=== PATIENT | female | born 1995 | race Caucasian/White ===

== ENCOUNTER 2016-10-10 11:50 | Emergency (ER) | payer BC, MEDICAID ==
[~2016-10-10] VITALS: Ht 160 cm; Wt 77.1 kg
[~2016-10-10 11:50] MED LIST: DICY20TA57 PO; HYDR-3583 PO; IBUP-1773 PO; PREN1TAB39 PO; PREN1TAB86 PO; VIVANCE; XANAX
--- OUTSIDE RECORDS SUMMARY | 2016-10-10 12:00 | XMS REPORT | Continuity of Care Document ---
Author Author Interface Organization Interface Address Unknown Phone Unavailable Problems Problem Status Onset Date Classification Date Reported Comments Source High risk (finding) Active Problem 09/27/2016 [facility] Patient currently (finding) Active 11/14/2015 Problem 09/27/2016 [facility] Medications Medication Details Route Status Patient Instructions Ordering Provider Order Date Source Multivitamins with Folic Acid 1 mg oral tablet Refill(s) 0 Active [facility] glucose TT beverage 50 gm/296 mL 05/26/16 11:00:00 CDT , Routine, 50 gm, PO, Unscheduled, 1 dose(s), Order for future visit Active [facility] Flagyl 500 mg oral tablet 500 mg=1 tablet, PO, BID, x 7 day(s), # 14 tablet, Refill(s) 0 [facility] Allergies, Adverse Reactions, Alerts Substance Category Reaction Severity Reaction type Status Date Reported Comments Source Immunizations Immunization Date Given Site Status Last Updated Comments Source Results Order Name Results Value Reference Range Date Interpretation Comments Source Health Clinic Note Health Clinic Note Antepartum Exam Nurse Communication Nurse Communication: 21 year old at 26w6d gestation seen at the [facility] for 2nd opinion ultrasound and PAT. is complicated by T18. Patient is accompanied by her friend and FOB. Dr. Adrian at bedside discussing ultrasound results with patient. Patient expresses desire for [facility] delivery. POC discussed. Patient verbalizes understanding. Plan: Patient to return to the [facility] in 4 weeks for echo, repeat ultrasound, and IC. Patient to continue care with Dr. Lisa Wright [facility] Next Appointment Recommendation: 4 weeks Vitals/Ht/Wt Comfort History Comfort Assessment: No pain Obstetrical History : 2 Para Fullterm: 1 Para : 0 Abortions: 0 Livin #1 Baby's Name: Baby 1 Delivery/Outcome Date: 08/19/2011 00:00 Gestational Age: 40 wks Gender: Female Weight: 3374 gm Outcome: Live Provider Name: Tru Adrian MD</br> Electronically Signed On: 07/02/16 03: 47 PM</br> 05/27/2016 Provider Name: Tru Adrian MD Electronically Signed On: 07/02/16 03:47 PM [facility] Health Clinic Note Health Clinic Note Antepartum Exam Nurse Communication Nurse Communication: 21 year old at 31w3d gestation seen at the [facility] for follow up ultrasound, Echo, social work consult, and IC. is complicated by T18, polyhydramnios, and a complete AV canal. Dr. Adrian at bedside reviewing ultrasound reports with patient. Patient verbalizes she is continuing all care with Dr. Wright. Dr. Adrian emphasizes importance of labor precautions and kick counts. Patient verbalizes understanding. Patient states she wants to go home at this time, and wishes to cancel her integrated consult. POC discussed. Patient verbalizes understanding. Plan: Patient to continue all care with Dr. Wright Patient to return to the [facility] in 4 weeks for follow-up ultrasound and integrated consult Patient to relocate to the [facility] at 38 weeks 39 week [facility] delivery [facility] Next Appointment Recommendation: 4 weeks Vitals/Ht/Wt Comfort History Comfort Assessment: No pain Obstetrical History : 2 Para Fullterm: 1 Para : 0 Abortions: 0 Livin #1 Baby's Name: Baby 1 Delivery/Outcome Date: 08/19/2011 00:00 Gestational Age: 40 wks Gender: Female Weight: 3374 gm Outcome: Live Social History Category Details Last Reviewed Alcohol Comment(s): tammi - 05/27/2016 15:32 - Marquita Cali, SHERLEY 05/27/2016 Substance Abuse Comment(s): tammi - 05/27/2016 15:32 - Marquita Cali, SHERLEY 05/27/2016 Tobacco Never used Comment(s): tammi - 05/27/2016 15:32 Marquita Barrientos, RN 05/27/2016 Smoking Exposure No 05/27/2016 Provider Name: Tru Adrian MD</br> Electronically Signed On: 06/28/16 03: 46 PM</br> 06/28/2016 Provider Name: Tru Adrian MD Electronically Signed On: 06/28/16 03:46 PM [facility] Vital Signs Vital Sign Value Date Comments Source Respiratory Rate 20 BR/min [facility] Systolic Blood Pressure Cuff Monitored <content ID=' [id number]'>109</content>/<content ID='[id number]'>69</content> mm[Hg ] 07/26/2016 [facility] Heart Rate 83 bpm 07/26/2016 [facility] Temperature Route Core/Temporal </br>(07/26/2016 13:05:00) <sup> </sup> 07/26/2016 [facility] Height/Length 160 cm 2015 [facility] Temperature Celsius 35.7 Iva 07/26/2016 [facility] Systolic Blood Pressure Cuff Monitored <content ID=' [id number]'>116</content>/<content ID='[id number]'>64</content> mm[Hg ] 05/27/2016 [facility] Current Weight 90.5 kg 2015 [facility] Height/Length 160 cm 2015 [facility] Respiratory Rate 19 BR/min [facility] Heart Rate 68 bpm 05/27/2016 [facility] Temperature Route Oral </br>(05/27/2016 15:24:00) <sup> </sup> 05/27/2016 [facility] Temperature Celsius 36.8 Iva 05/27/2016 [facility] Encounters Location Location Details Encounter Type Encounter Number Reason For Visit Attending Provider ADM Date DC Date Status Source [facility] Non Billable [id number] 05/18/2016 05/18/2016 Active [facility] CLI [id number] Tru Adrian 05/27/2016 05/27/2016 Active [facility] OBS [id number] Darryl Hannah 07/26/2016 Active [facility] CLI [id number] Tru Adrian 06/28/2016 06/28/2016 Active [facility] Procedures Procedure Code Date Perfomer Comments Source biophysical profile; with non-stress testing [facility] Office or other outpatient visit for the evaluation and management of an established patient, which requires at least 2 of these 3 craft components: A detailed history; A detailed examination; Medical decision making of moderate complexity. Counseling and/o 07/26/2016 [facility] Doppler echocardiography color flow velocity mapping (List separately in addition to codes for echocardiography) 06/28/2016 [facility] Doppler echocardiography, , pulsed wave and/or continuous wave with spectral display; complete [facility] Echocardiography, , cardiovascular system, real time with image documentation (2D), with or without M-mode recording; [facility]
--- NOTE | 2016-10-10 12:25 | ED Neurological Problem ---
General Chief Complaint: Altered Mental Status Stated Complaint: RACING HEART Nursing Triage Note: Called EMS for heart racing and meet EMS outside on arrival. Pt is uncooperative with hx intake, staring at staff with questions asked. EMS reports Meth yesterday Nursing Sepsis Screen: No Definite Risk Source: patient Exam Limitations: other (the patient has refused to offer a history after her arrival in the emergency department.) History of Present Illness Time seen by provider: 12:20 Initial Comments This 21-year-old white female presents after calling EMS for transport to the emergency department. The patient after EMS arrived refused to talk to the paramedics who transported the stable patient to the emergency department. The patient in the emergency department was able to answer some questions and a clear and coherent fashion. However, the majority of the patient's acid question she did not answer. Shortly after arrival the patient attempted to leave. I asked the patient not to leave. I discussed with the patient that we cannot allow her to leave until we're certain she would be safe and was coherent. The patient during the course of her evaluation became awake and alert. She elected to leave in the course of treatment. Allergies and Home Medications Allergies Coded Allergies: No Known Drug Allergies (Unverified , 08/18/11) Home Medications Ibuprofen 600 Mg Tablet #90 600 MG PO Q6H Prescribed by: CLAUDINE ROMAN on 08/03/16 1725 Vit W-Ca,Fe,FA(<1 mg) 1 Each Tablet 1 EACH PO DAILY (Reported) Constitutional: see HPI (I was unable to perform review of systems on the patient.) Past Jvzkmiv-Uptxxr-Fzecyq Hx Patient Social History Alcohol Use: Denies Use Recreational Drug Use: No Smoking Status: Former Smoker Type Used: Cigarettes Recent Foreign Travel: No Contact w/Someone Who Travel: No Recent Infectious Disease Expo: No Recent Hopitalizations: No Physical Abuse Screen: No Sexual Abuse: No Immunizations Up To Date Tetanus Booster (TDap): Unknown Seasonal Allergies Seasonal Allergies: No Surgeries HX Surgeries: Yes Surgeries: Adenoidectomy, Gallbladder, Tonsillectomy Respiratory Hx Respiratory Disorders: No Cardiovascular Hx Cardiac Disorders: No Neurological Hx Neurological Disorders: No Reproductive System Hx Reproductive Disorders: No Genitourinary Hx Genitourinary Disorders: No Gastrointestinal Hx Gastrointestinal Disorders: No Musculoskeletal Hx Musculoskeletal Disorders: No Endocrine Hx Endocrine Disorders: No HEENT HX ENT Disorders: No Cancer Hx Cancer: No Psychosocial Hx Psychiatric Problems: Yes (methamphetamine abuse) Behavioral Health Disorders: ADD/ADHD Integumentary HX Skin/Integumentary Disorder: No Blood Transfusions Hx Blood Disorders: No Family Medical History Significant Family History: Asthma, Diabetes Family Medial History: Not obtainable due to adoption Physical Exam Vital Signs Vital Sign - Last 12Hours 10/10/16 11:50 Temp 97.9 Pulse 101 Resp 16 B/P 149/97 Pulse Ox 95 O2 Delivery Room Air Capillary Refill : Less Than 3 Seconds General Appearance: WD/WN other (the patient will track verbally. She is essentially unresponsive to my questions. There was no evidence of head trauma. ) HEENT: normal ENT inspection Neck: normal inspection Respiratory: normal breath sounds Cardiovascular: regular rate, rhythm Gastrointestinal: normal bowel sounds non tender soft Back: normal inspection Extremities: normal range of motion non-tender normal inspection Neurologic/Psychiatric: other (at this point is not possible to determine the patient's orientation. She is able ambulate without difficulty. The patient will not respond to simple questions. The patient has been noncombative and will follow instructions.) Motor/Sensory: no motor deficit Skin: normal color warm/dry Progress/Results/Core Measures Results/Orders Lab Results Laboratory Tests Test 10/10/16 12:26 Range/Units Alanine Aminotransferase (ALT/SGPT) 25 0-55 U/L Albumin 4.6 H 3.2-4.5 G/DL Alkaline Phosphatase 116 40-136 U/L Anion Gap 15 H 5-14 MMOL/L Aspartate Amino Transf (AST/SGOT) 16 5-34 U/L BUN/Creatinine Ratio 16 Basophils # (Auto) 0.0 0.0-0.1 10^3/uL Basophils (%) (Auto) 0 0-10 % Blood Urea Nitrogen 14 7-18 MG/DL Calcium Level 10.0 8.5-10.1 MG/DL Carbon Dioxide Level 20 L 21-32 MMOL/L Chloride Level 106 98-107 MMOL/L Creatinine 0.87 0.60-1.30 MG/DL Eosinophils # (Auto) 0.1 0.0-0.3 10^3/uL Eosinophils (%) (Auto) 1 0-10 % Estimat Glomerular Filtration Rate > 60 Glucose Level 112 H 70-105 MG/DL Hematocrit 42 35-52 % Hemoglobin 14.6 11.5-16.0 G/DL Lymphocytes # (Auto) 2.6 1.0-4.0 X 10^3 Lymphocytes (%) (Auto) 23 12-44 % Mean Corpuscular Hemoglobin 31 25-34 PG Mean Corpuscular Hemoglobin Concent 35 32-36 G/DL Mean Corpuscular Volume 89 80-99 FL Mean Platelet Volume 9.4 7.4-10.4 FL Monocytes # (Auto) 1.0 0.0-1.0 X 10^3 Monocytes (%) (Auto) 9 0-12 % Neutrophils # (Auto) 7.5 1.8-7.8 X 10^3 Neutrophils (%) (Auto) 67 42-75 % Platelet Count 466 H 130-400 10^3/uL Potassium Level 3.6 3.6-5.0 MMOL/L Red Blood Count 4.73 4.35-5.85 10^6/uL Red Cell Distribution Width 13.2 10.0-14.5 % Sodium Level 141 135-145 MMOL/L Total Bilirubin 0.7 0.1-1.0 MG/DL Total Protein 7.8 6.4-8.2 G/DL White Blood Count 11.2 H 4.3-11.0 10^3/uL My Orders Orders-JARET ASKEW MD Cbc With Automated Diff (10/10/16 12:06) Comprehensive Metabolic Panel (10/10/16 12:06) Chest 1 View, Ap/Pa Only (10/10/16 12:18) Ct Head Wo (10/10/16 12:18) Vital Signs/I&O Vital Sign - Last 12Hours 10/10/16 10/10/16 11:50 13:20 Temp 97.9 97.9 Pulse 101 101 Resp 16 16 B/P 149/97 Pulse Ox 95 95 O2 Delivery Room Air Room Air Blood Pressure Mean: 114 Departure Impression Impression: Primary Impression: Altered mental status Disposition: 01 HOME, SELF-CARE Condition: Improved Departure-Patient Inst. Decision time for Depature: 18:08 Referrals: CLAUDINE ROMAN DO (PCP/Family) Primary Care Physician JARET ASKEW MD Oct 10, 2016 12:24
[2016-10-10 12:34] LABS: BASOPHILS % (AUTO) 0 % (0-10); EOSINOPHILS # (AUTO) 0.1 10^3/uL (0.0-0.3); EOSINOPHILS % (AUTO) 1 % (0-10); LYMPHOCYTES # (AUTO) 2.6 X 10^3 (1.0-4.0); LYMPHOCYTES % (AUTO) 23 % (12-44); MEAN CORPUSCULAR HEMOGLOBIN 31 PG (25-34); MEAN CORPUSCULAR HGB CONC 35 G/DL (32-36); MEAN CORPUSCULAR VOLUME 89 FL (80-99); MEAN PLATELET VOLUME 9.4 FL (7.4-10.4); MONOCYTES % (AUTO) 9 % (0-12); NEUTROPHILS # (AUTO) 7.5 X 10^3 (1.8-7.8); NEUTROPHILS % (AUTO) 67 % (42-75); PLATELET COUNT 466 10^3/uL (130-400); RED BLOOD COUNT 4.73 10^6/uL (4.35-5.85); RED CELL DISTRIBUTION WIDTH 13.2 % (10.0-14.5); WHITE BLOOD COUNT 11.2 10^3/uL (4.3-11.0)
[2016-10-10 12:51] LABS: ALANINE AMINOTRANSFERASE 25 U/L (0-55); ALBUMIN 4.6 G/DL (3.2-4.5); ANION GAP 15 MMOL/L (5-14); ASPARTATE AMINO TRANSFERASE 16 U/L (5-34); BILIRUBIN,TOTAL 0.7 MG/DL (0.1-1.0); BLOOD UREA NITROGEN 14 MG/DL (7-18); BUN/CREATININE RATIO 16; CARBON DIOXIDE 20 MMOL/L (21-32); CHLORIDE 106 MMOL/L (98-107); CREATININE SERUM 0.87 MG/DL (0.60-1.30); GFR ESTIMATED > 60; GLUCOSE 112 MG/DL (70-105); POTASSIUM 3.6 MMOL/L (3.6-5.0); SODIUM 141 MMOL/L (135-145); TOTAL PROTEIN 7.8 G/DL (6.4-8.2)
--- NOTE | 2016-10-10 13:07 | Diagnostic Imaging Report ---
Indication: Palpitations Comparison: August 28, 2015 Technique: Single frontal radiograph view of the chest dated October 10, 2016. Findings: The cardiac silhouette is within normal limits. No significant pulmonary vascular congestion. The lungs are clear. No pleural effusion. No pneumothorax. Significant apex right curvature of the thoracic spine is again identified. No acute osseous abnormality. IMPRESSION: Stable examination demonstrating significant apex right curvature of the spine without acute cardiopulmonary abnormality. Dictated by: Dictated on workstation # [id number]
--- NOTE | 2016-10-10 13:12 | Diagnostic Imaging Report ---
PROCEDURE: CT head without contrast. TECHNIQUE: Multiple contiguous axial images were obtained through the brain without the use of intravenous contrast. INDICATION: Palpitations and hallucinations Comparison: July 24, 2015 Findings: No intracranial hemorrhage. No intracranial mass, mass effect, midline shift, herniation, hydrocephalus, or extra-axial fluid collection. No definite CT evidence of an acute ischemic infarction. The calvarium and extracalvarial soft tissues are unremarkable. The minimally visualized paranasal sinuses are clear. IMPRESSION: Stable appearing examination without acute intracranial abnormality. Dictated by: Dictated on workstation # [id number]
[2016-10-10 13:20] VITALS: BP 149/97
== END 2016-10-10 13:26 | disposition left against medical advice (07) ==
LOC: EDUNIT# 11:53 → ER 11:55
DX: R41.82 Altered mental status, unspecified (principal); Z53.29 Procedure and treatment not carried out because of patient's decision for other reasons
CPT/HCPCS: 36415; 70450; 71010; 80053; 85025

== ENCOUNTER 2016-10-18 08:41 | Emergency (ER) | payer BC, MEDICAID ==
[~2016-10-18] VITALS: Ht 157.5 cm; Wt 72.6 kg
--- OUTSIDE RECORDS SUMMARY | 2016-10-18 08:46 | XMS REPORT | Continuity of Care Document ---
Author Author Interface Organization Interface Address Unknown Phone Unavailable Problems Problem Status Onset Date Classification Date Reported Comments Source High risk (finding) Active Problem 10/16/2016 [facility] Patient currently (finding) Active 11/14/2015 Problem 10/16/2016 [facility] Medications Medication Details Route Status Patient Instructions Ordering Provider Order Date Source Multivitamins with Folic Acid 1 mg oral tablet Refill(s) 0 Active [facility] glucose TT beverage 50 gm/296 mL 05/26/16 11:00:00 CDT , Routine, 50 gm, PO, Unscheduled, 1 dose(s), Order for future visit Active [facility] Flagyl 500 mg oral tablet 500 mg=1 tablet, PO, BID, x 7 day(s), # 14 tablet, Refill(s) 0 [facility] Allergies, Adverse Reactions, Alerts Substance Category Reaction Severity Reaction type Status Date Reported Comments Source Immunizations Immunization Date Given Site Status Last Updated Comments Source Results Order Name Results Value Reference Range Date Interpretation Comments Source Health Clinic Note Health Clinic Note Antepartum Exam Nurse Communication Nurse Communication: 21 year old at 26w6d gestation seen at the [facility] for 2nd opinion ultrasound and PAT. is complicated by T18. Patient is accompanied by her friend and FOB. Dr. Adrian at bedside discussing ultrasound results with patient. Patient expresses desire for [facility] delivery. POC discussed. Patient verbalizes understanding. Plan: Patient to return to the [facility] in 4 weeks for echo, repeat ultrasound, and IC. Patient to continue care with Dr. Lisa Wright [facility] Next Appointment Recommendation: 4 weeks Vitals/Ht/Wt Comfort [...] MD Electronically Signed On: 07/02/16 03:47 PM [facility] Health Clinic Note Health Clinic Note Antepartum Exam Nurse Communication Nurse Communication: 21 year old at 31w3d gestation seen at the [facility] for follow up ultrasound, Echo, social work [...] Dr. Wright Patient to return to the [facility] in 4 weeks for follow-up ultrasound and integrated consult Patient to relocate to the [facility] at 38 weeks 39 week [facility] delivery [facility] Next Appointment Recommendation: 4 weeks Vitals/Ht/Wt Comfort [...] MD Electronically Signed On: 06/28/16 03:46 PM [facility] Vital Signs Vital Sign Value Date Comments Source Respiratory Rate 20 BR/min [facility] Systolic Blood Pressure Cuff Monitored <content ID=' [id number]'>109</content>/<content ID='[id number]'>69</content> mm[Hg ] 07/26/2016 [facility] Heart Rate 83 bpm 07/26/2016 [facility] Temperature Route Core/Temporal </br>(07/26/2016 13:05:00) <sup> </sup> 07/26/2016 [facility] Height/Length 160 cm 2015 [facility] Temperature Celsius 35.7 Iva 07/26/2016 [facility] Systolic Blood Pressure Cuff Monitored <content ID=' [id number]'>116</content>/<content ID='[id number]'>64</content> mm[Hg ] 05/27/2016 [facility] Current Weight 90.5 kg 2015 [facility] Height/Length 160 cm 2015 [facility] Respiratory Rate 19 BR/min [facility] Heart Rate 68 bpm 05/27/2016 [facility] Temperature Route Oral </br>(05/27/2016 15:24:00) <sup> </sup> 05/27/2016 [facility] Temperature Celsius 36.8 Iva 05/27/2016 [facility] Encounters Location Location Details Encounter Type Encounter Number Reason For Visit Attending Provider ADM Date DC Date Status Source [facility] Non Billable [id number] 05/18/2016 05/18/2016 Active [facility] CLI [id number] Tru Adrian 05/27/2016 05/27/2016 Active [facility] OBS [id number] Darryl Hannah 07/26/2016 Active [facility] CLI [id number] Tru Adrian 06/28/2016 06/28/2016 Active [facility] Procedures Procedure Code Date Perfomer Comments Source biophysical profile; with non-stress testing [facility] Office or other outpatient visit for the evaluation and management of an established patient, which requires at least 2 of these 3 craft components: A detailed history; A detailed examination; Medical decision making of moderate complexity. Counseling and/o 07/26/2016 [facility] Doppler echocardiography color flow velocity mapping (List separately in addition to codes for echocardiography) 06/28/2016 [facility] Doppler echocardiography, , pulsed wave and/or continuous wave with spectral display; complete [facility] Echocardiography, , cardiovascular system, real time with image documentation (2D), with or without M-mode recording; [facility]
[2016-10-18 09:22] VITALS: BP 132/84
== END 2016-10-18 09:22 | disposition left against medical advice (07) ==
LOC: EDUNIT# 08:41 → ER 08:42
DX: R52 Pain, unspecified (principal); Z53.21 Procedure and treatment not carried out due to patient leaving prior to being seen by health care provider
CPT/HCPCS: 99285